=== PATIENT | female | born 1985 | race Caucasian/White ===

== ENCOUNTER 2018-08-30 08:34 | Emergency (ER) | payer OTHER ==
[2018-08-30 09:11] VITALS: BP 103/68; PULSE 99; RESP 16; TEMP 98; O2SAT 100
[2018-08-30] MEDS ORDERED: Sodium Chloride 0.9% 1,000 ML IV STA (09:28)
--- NOTE | 2018-08-30 10:05 | ED PDOC ---
HPI:Nausea, Vomiting, Diarrhea Time Seen by Provider: 08/30/18 09:06 Chief Complaint (Nursing): Abdominal Pain Chief Complaint (Provider): diarrhea and vomiting History Per: Patient History/Exam Limitations: no limitations Onset/Duration Of Symptoms: Hrs (last night) Associated Symptoms: Nausea, Vomiting, Diarrhea. denies: Chest Pain Additional Complaint(s): Tonya Hurley is a 32 year old female, with no significant past medical history, who presents to the emergency department for evaluation of non bloody diarrhea and vomiting onset since last night. Patient is 22 weeks and is also complaining of epigastric pain. Patient states she has been traveling for the past x2 weeks. However, she has not eaten anything out of the ordinary. She denies any chest pain, shortness of breath, leg pain, cough, congestion, runny nose, fever, chills, numbness or tingling, weakness, headache or dizziness. No further medical complaints. No pelvic pain or vaginal bleeding. PMD: In [place] Past Medical History Reviewed: Historical Data, Nursing Documentation, Vital Signs Vital Signs: Last Vital Signs Temp 98.0 F 08/30/18 09:07 Pulse 99 H 08/30/18 09:07 Resp 16 08/30/18 09:07 BP 103/68 08/30/18 09:07 Pulse Ox 100 08/30/18 09:07 - Medical History PMH: No Chronic Diseases - Surgical History Surgical History: No Surg Hx - Family History Family History: States: Unknown Family Hx - Immunization History Hx Influenza Vaccination: Yes - Allergies Allergies/Adverse Reactions: Allergies Allergy/AdvReac Type Severity Reaction Status Date / Time No Known Allergies Allergy Verified 08/30/18 09:05 Review of Systems ROS Statement: Except As Marked, All Systems Reviewed And Found Negative Constitutional: Negative for: Fever, Chills ENT: Negative for: Nose Discharge, Nose Congestion Cardiovascular: Negative for: Chest Pain Respiratory: Negative for: Cough, Shortness of Breath Gastrointestinal: Positive for: Nausea, Vomiting, Abdominal Pain (epigastric), Diarrhea (non bloody) Musculoskeletal: Negative for: Leg Pain Neurological: Negative for: Weakness, Numbness (tingling), Headache, Dizziness Physical Exam - Reviewed Nursing Documentation Reviewed: Yes Vital Signs Reviewed: Yes - Physical Exam Appears: Positive for: No Acute Distress Head Exam: Positive for: ATRAUMATIC, NORMAL INSPECTION, NORMOCEPHALIC Skin: Positive for: Normal Color, Warm, Dry Eye Exam: Positive for: Normal appearance, EOMI, PERRL Neck: Positive for: Normal, Painless ROM Cardiovascular/Chest: Positive for: Regular Rate, Rhythm. Negative for: Murmur Respiratory: Positive for: Normal Breath Sounds. Negative for: Respiratory Distress Gastrointestinal/Abdominal: Positive for: Normal Exam, Soft, Other (gravid). Negative for: Tenderness, Guarding, Rebound Back: Positive for: Normal Inspection. Negative for: L CVA Tenderness, R CVA Tenderness, Vertebral Tenderness Extremity: Positive for: Normal ROM (upper and lower extremities). Negative for: Deformity, Swelling Neurologic/Psych: Positive for: Alert, Oriented - Laboratory Results Result Diagrams: 08/30/18 09:45 08/30/18 09:45 Interpretation Of Abn Labs: no acute - ECG O2 Sat by Pulse Oximetry: 100 (RA) Pulse Ox Interpretation: Normal - Progress ED Course And Treament: 1137: OBGYN nurse saw pt. in the ER per Dr. Buckner instructions and has FHR. No further testing needed at this time. Pt. feels much better. AAOx3. Pain free. Tolerated po . Fu with pcp. Spoke with Dr. Beltran pt. obgyn in [place]. Agrees with all care and management. Medical Decision Making Medical Decision Making: Time: 09:06 Initial Impression: Diarrhea Initial Plan: --Beta-HCG, Quantitative --CMP --Lipase --Urine --Urine dipstick --CBC w/ differential --Bentyl 10 mg PO --Sodium Chloride 1,000 ml IV 1,000 mls/hr --Reglan 10 mg IV --Reevaluation Scribe Attestation: Documented by Isidro Rush, acting as a scribe for Pranav Song MD. Provider Scribe Attestation: All medical record entries made by the Scribe were at my direction and personally dictated by me. I have reviewed the chart and agree that the record accurately reflects my personal performance of the history, physical exam, medical decision making, and the department course for this patient. I have also personally directed, reviewed, and agree with the discharge instructions and disposition. Disposition - Clinical Impression Clinical Impression: Nausea and vomiting, Diarrhea - Patient ED Disposition Is Patient to be Admitted: No Counseled Patient/Family Regarding: Studies Performed, Diagnosis, Need For Followup - Disposition Referrals: [facility] [Outside] - 08/31/18 Disposition: Routine/Home Disposition Time: 11:40 Condition: STABLE Additional Instructions: Return if not better in 3 days. Instructions: Diarrhea in Adolescents and Adults, Nausea and Vomiting, Adult Forms: [facility] (Hebrew)
[2018-08-30 10:07] LABS: BASO % 0.3 % (0.0-2.0); EOS % 0.2 % (0.0-4.0); HEMOGLOBIN 11.6 g/dL (12.0-16.0); LYMPH # 0.5 K/uL (1.0-4.3); LYMPH % 5.2 % (20.0-40.0); MEAN CELL VOLUME 88.7 fl (81.0-99.0); MEAN CORPUSCULAR HEMOGLOBIN 28.8 pg (27.0-31.0); MEAN CORPUSCULAR HGB CONC 32.5 g/dL (33.0-37.0); MEAN PLATELET VOLUME 7.3 fl (7.2-11.7); MONO # 0.3 K/uL (0.0-0.8); NEUT # 9.7 K/uL (1.8-7.0); NEUT % 91.3 % (50.0-75.0); NRBC % 0.1 % (0.0-0.0); PLATELET COUNT 212 K/uL (130-400); RBC 4.04 Mil/uL (3.80-5.20); RED CELL DISTRIBUTION WIDTH 15.4 % (11.5-14.5); WHITE BLOOD COUNT 10.7 K/uL (4.8-10.8)
[2018-08-30 10:13] LABS: ALB/GLOB RATIO 1.1 (1.0-2.1); ALBUMIN 3.9 g/dL (3.5-5.0); ALT/SGPT 28 U/L (9-52); AST/SGOT 26 U/L (14-36); BLOOD UREA NITROGEN 8 mg/dl (7-17); CALCIUM 9.1 mg/dL (8.4-10.2); GFR NON-AFRICAN AMERICAN > 60; LIPASE 47 U/L (23-300)
[2018-08-30 12:42] LABS: BANDS 4 % (0-2); LYMPHOCYTE 3 % (20-50); MONOCYTE 1 % (0-10); NEUTROPHIL 92 % (42-75); TOTAL CELLS COUNTED 100
[2018-08-30 12:43] LABS: ANISOCYTOSIS SLIGHT; PLATELET ESTIMATE NORMAL (NORMAL); POIKILOCYTOSIS SLIGHT; TEARDROP CELLS SLIGHT; TOXIC GRANULATION PRESENT
== END 2018-08-30 12:01 | disposition home or self-care (01) ==
LOC: H.ER 08:34
DX: O21.9 Vomiting of pregnancy, unspecified (principal); R19.7 Diarrhea, unspecified
CPT/HCPCS: 80053; 81025; 83690; 84702; 85025; 96374; 99284; J2765; J7030